=== PATIENT | male | born 1960 | race Caucasian/White ===

== ENCOUNTER 2016-08-17 17:46 | Emergency (ER) | payer OTHER ==
[2016-08-17 18:00] VITALS: BP 123/81; PULSE 73; TEMP 98; BMI 25.8
[2016-08-17] MEDS ORDERED: LIDOCAINE 1%/EPI 1:100000 (50 ML MULTI DOSE VIAL) ONE (18:24)
--- NOTE | 2016-08-17 18:42 | PDOC ---
History of Present Illness - General Chief Complaint: Laceration Stated Complaint: LACERATION Time Seen by Provider: 08/17/16 18:10 History Source: Patient Exam Limitations: No Limitations - History of Present Illness Initial Comments: 08/17/16 18:40 while at work , was replacing glass that fell onto his right wrist, broke and incurred laceration to the volar aspect of his distal wrist. Has a 2 cm flap laceration without active bleeding. Has full range of motion of fingers, no other injury. Timing/Duration: reports: just prior to arrival Severity: Yes: mild Location: reports: hands Associated Symptoms: reports: denies symptoms Past History - Travel Traveled outside of the country in the last 30 days: Yes Close contact w/someone who was outside of country & ill: Yes - Past Medical History Allergies/Adverse Reactions: Allergies Allergy/AdvReac Type Severity Reaction Status Date / Time No Known Drug Allergies Allergy Verified 08/17/16 17:54 Home Medications: Ambulatory Orders Lisinopril 10 mg PO ASDIR 08/17/16 Anemia: No Asthma: No Cancer: No Cardiac Disorders: No CVA: No COPD: No CHF: No Dementia: No Diabetes: No GI Disorders: Yes (colitis) Disorders: No HTN: Yes Hypercholesterolemia: No Liver Disease: No Seizures: No Thyroid Disease: No - Psycho/Social/Smoking Cessation Hx Anxiety: No Suicidal Ideation: No Smoking Status: No Smoking History: Never smoked Number of Cigarettes Smoked Daily: 0 Hx Alcohol Use: No Drug/Substance Use Hx: No Substance Use Type: None Hx Substance Use Treatment: No Review of Systems - Review of Systems Able to Perform ROS?: Yes Is the patient limited Bangladeshi proficient: Yes Constitutional: Yes: See HPI. No: Symptoms Reported, Malaise Musculoskeletal: Yes: Symptoms Reported, See HPI. No: Joint Swelling, Joint Stiffness Integumentary: Yes: Symptoms Reported, See HPI Neurological: Yes: See HPI. No: Symptoms reported, Numbness, Paresthesia *Physical Exam - Vital Signs Last Vital Signs Temp Pulse Resp BP Pulse Ox 98 F 73 19 123/81 97 08/17/16 17:54 08/17/16 17:54 08/17/16 17:54 08/17/16 17:54 08/17/16 17:54 - Physical Exam General Appearance: Yes: Nourished, Appropriately Dressed, Apparent Distress, Mild Distress HEENT: positive: CLARK, Normal ENT Inspection, TMs Normal, Pharynx Normal Neck: positive: Supple. negative: Lymphadenopathy (R), Lymphadenopathy (L) Respiratory/Chest: positive: Lungs Clear Extremity: positive: Normal Capillary Refill, Normal Range of Motion Integumentary: positive: Normal Color, Other (2 cm flap laceration to the distal aspect of right volar wrist, has full range of motion against resistance to all digits, neurovascular intact to fingertips. 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 NML intact, Fully Oriented, Alert, Normal Mood/ Affect, Normal Response, Motor Strength 5/5 Procedures - Laceration/Wound Repair Right Wrist Wound Length: to 2.5 cm Wound Explored: clean Wound's Depth, Shape: superficial, flap Irrigated w/ Saline: Yes Betadine Prep: Yes Anesthesia: 1% Lidocaine w/ Epi Wound Repaired With: Sutures Suture Size/Type: 5:0 Layer Closure: No Progress Note - Progress Note Progress Note: Wrist laceration repaired, Medical Decision Making - Medical Decision Making 08/17/16 18:39 *DC/Admit/Observation/Transfer Diagnosis at time of Disposition: Laceration of wrist Qualifiers: Encounter type: initial encounter Laterality: left Qualified Code(s): S61.512A - Laceration without foreign body of left wrist, initial encounter - Discharge Dispostion Disposition: HOME Condition at time of disposition: Stable Admit: No - Patient Instructions Printed Discharge Instructions: DI for Laceration Repair Additional Instructions: Rest, elevate, avoid strenuous activity or heavy lifting until sutures are removed Leave dressing on for the next 24 hours, Then may remove dressing gently and wash area with soap and water. Reapply bacitracin ointment and dressing daily for the next 5 days On day #6 keep the wound protected and cover as needed until sutures are removed allowing wound to start to dry May use Tylenol or Motrin for pain relief Suture removal in :10--14 Days - Post Discharge Activity Work/School Note: Back to Work
== END 2016-08-17 18:46 | disposition home or self-care (01) ==
LOC: JERFT 17:46 → JER 17:46 → JERFT 18:46
PROC: 0HQDXZZ Repair Right Lower Arm Skin, External Approach (ICD-10-PCS; principal; 2016-08-17)
DX: S61.511A Laceration without foreign body of right wrist, initial encounter (principal); W25.XXXA Contact with sharp glass, initial encounter; Y93.H9 Activity, other involving exterior property and land maintenance, building and construction; Y92.511 Restaurant or cafe as the place of occurrence of the external cause; Y99.0 Civilian activity done for income or pay
CPT/HCPCS: 99281-25

== ENCOUNTER 2016-09-02 08:54 | Emergency (ER) | payer OTHER ==
[2016-09-02 08:58] VITALS: BP 131/92; PULSE 59; TEMP 98.2; BMI 25.8
--- NOTE | 2016-09-02 10:16 | PDOC ---
Suture Removal/Wound Check HPI - History of Present Illness Chief Complaint: Suture/Staple Removal(Here) Stated Complaint: SUTURES REMOVAL Time Seen by Provider: 09/02/16 09:56 History Source: Yes: Patient Exam Limitations: Yes: No Limitations Treated at: [facility] Date of Last ED visit: 08/17/16 - Previous ED Treatment Type of procedure performed on last visit: Yes: Laceration Repair (right inner wrist) Tetanus Immunization: Yes: Up to Date Antibiotics Prescribed: No Past History - Past Medical History Allergies/Adverse Reactions: Allergies No Known Drug Allergies Allergy (Verified 09/02/16 08:58) Home Medications: Ambulatory Orders Lisinopril 10 mg PO ASDIR 08/17/16 General: Yes: no pertinent history - Social History Smoking History: No Smoking Status: Never smoked Number of Ciarettes Per Day: 0 Suture Removal/Wound Check PE - Physical Exam Laceration/Wound Check Symptoms: reports: None Comments: 09/02/16 18:40 right inner wrist with 5 intact sutures wound well healed nv intact no redness or deficit in function Procedures - Additional Procedures Progress: 09/02/16 18:41 5 simple interrupted sutures removed edges well healed Medical Decision Making - Medical Decision Making 09/02/16 18:41 cc: suture removal right inner wrist nv intact FROM of the wrist *DC/Admit/Observation/Transfer Diagnosis at time of Disposition: Visit for suture removal - Discharge Dispostion Disposition: HOME Condition at time of disposition: Good - Referrals Referrals: Tricia Mcgraw MD [Primary Care Provider] - - Patient Instructions Additional Instructions: apply vitamin E oil or cocoa butter to the scar twice a day to help smoothe the scar down for the next few months
== END 2016-09-02 10:20 | disposition home or self-care (01) ==
LOC: JERFT 08:54
DX: Z48.02 Encounter for removal of sutures (principal)
CPT/HCPCS: 99281-25

== ENCOUNTER 2016-10-22 06:09 | Day surgery (SDC) | payer OTHER ==
[2016-10-21 14:36] VITALS: BMI 25.4
[2016-10-22] MEDS ORDERED: BUPIVACAINE HCL/PF 0.5% (5MG/ML) 10 ML VIAL ONE (07:43)
[2016-10-22] MEDS ORDERED: MIDAZOLAM HCL 2 MG/2 ML SINGLE DOSE VIAL ONE (07:55)
[2016-10-22] MEDS ORDERED: PROPOFOL 20 ML ONE ×2 (07:55→09:49)
[2016-10-22] MEDS ORDERED: ROCURONIUM BROMIDE 50 MG/5 ML VIAL ONE (07:55)
--- NOTE | 2016-10-22 08:19 | HP ---
History & Physical Update - History History: No Change - Physical Physical: No Change - Assessment Assessment: No Change - Plan Plan: No Change
[2016-10-22] MEDS ORDERED: ceFAZolin SODIUM 1 GM VIAL IVPB ONE (08:29)
[2016-10-22] MEDS ORDERED: ceFAZolin SODIUM 1 GM VIAL ONE (08:46)
[2016-10-22] MEDS ORDERED: BUPIVACAINE HCL/PF 0.5% (5MG/ML) 10 ML VIAL IJ ONE (08:49)
[2016-10-22] MEDS ORDERED: DEXAMETHASONE SOD PHOSPHATE 4 MG/1 ML VIAL ONE (09:17)
[2016-10-22] MEDS ORDERED: NEOSTIGMINE METHYLSULFATE 0.5 MG/ML - 10 ML MDV ONE (09:17)
[2016-10-22] MEDS ORDERED: GLYCOPYRROLATE 0.2 MG/1 ML VIAL ONE (09:17)
[2016-10-22] MEDS ORDERED: LIDOCAINE HCL/PF 2% SDV 5ML VIAL ONE (09:17)
[2016-10-22] MEDS ORDERED: KETOROLAC TROMETHAMINE 30 MG/1 ML VIAL ONE (09:17)
[2016-10-22] MEDS ORDERED: PROMETHAZINE HCL 25 MG/1 ML VIAL IVPUSH PRN (10:50)
[2016-10-22] MEDS ORDERED: ONDANSETRON 4 MG/2 ML VIAL IVPUSH PRN (10:50)
[2016-10-22] MEDS ORDERED: oxyCODONE HCL 5 MG TABLET PO PRN (10:50)
[2016-10-22] MEDS ORDERED: LACTATED RINGERS SOLUTION 1,000 ML IV SCH (11:00)
[2016-10-22 14:12] LABS: HIV 1 & 2 AB NEGATIVE; HIV 1 AGp24 NEGATIVE
[2016-10-22] MEDS ORDERED: oxyCODONE HCL 5 MG TABLET ONE (14:22)
[2016-10-22 16:03] VITALS: PULSE 65; TEMP 97.8
[2016-10-22 16:12] VITALS: BP 124/68
--- NOTE | 2016-10-23 15:06 | SURG ---
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 For further detail, please refer to operative report. Visit type - Case Type Case Type: Scheduled Admission - Emergency Emergency Visit: No - New patient This patient is new to me today: Yes Date on this admission: 10/27/16 - Critical Care Critical Care patient: No
--- NOTE | 2016-10-23 16:24 | OP ---
DATE OF OPERATION: 10/22/2016 PROCEDURE: Robotic-assisted laparoscopic umbilical hernia repair with umbilical/ventral hernia repair with mesh. PREOPERATIVE DIAGNOSIS: Umbilical/ventral hernia. POSTOPERATIVE DIAGNOSIS: Umbilical/ventral hernia. SURGEON: Bryan Tran MD ONLINE RETAILER: LEYDI Madsen ANESTHESIA: General endotracheal. FINDINGS AND PROCEDURE: This is a 56-year-old male who presents with a longstanding history of an umbilical bulge which was associated with pain on exertion, and which has increased in size. On physical exam, the patient has a partially reducible , 3-cm bulge of the umbilicus with mild tenderness on deep palpation. The defect was vaguely palpable, reaches about 3 cm in its widest diameter. The patient was advised to have elective repair of the hernia. Consent was obtained after discussing the risks, benefits and alternatives to the procedure. The patient was brought to the operating room and placed in supine position. General endotracheal anesthesia was administered. The abdomen was prepped and draped in usual sterile fashion. A roll was then placed under the patient's left flank. The peritoneal cavity was entered using the Veress needle technique via an 8-mm left subcostal incision behind the anterior axillary line. Pneumoperitoneum was established. An 8-mm port was then inserted, followed by insertion of the 3D, 30-degree laparoscope. The peritoneal cavity was carefully inspected and was noted to be free of inadvertent injury. The umbilical defect was visualized and was noted to contain a moderate amount of preperitoneal fat. Two 8-mm ports were inserted 7 mm away from each other, one at the level of the umbilicus and one at the left lower quadrant behind the anterior axillary line. The laparoscope was then placed in the middle port. The target organ was set and the robotic arms were docked. The EndoWrist venus were inserted at the left subcostal port and the fenestrated bipolar was inserted at the left lower quadrant port. The undersigned then scrubbed out to commence the console part of the procedure. The parietal peritoneum was scored about 5 cm away from the umbilical defect using the EndoWrist venus. A preperitoneal pocket was then created with at least 5 cm of circumferential space surrounding the umbilical defect. The hernia sac was then taken down together with the incarcerated preperitoneal fat. At this point, the defect was noted to be about 3 cm in its widest diameter. The defect was primarily closed with no. 1 V-Loc nonabsorbable suture. A 10- x 10-cm ProGrip mesh was then deployed and carefully laid in the retrorectus/retroperitoneal space. After deployment was deemed satisfactory, the peritoneal pocket was closed with running continuous V-Loc 2-0 absorbable sutures. The peritoneal cavity was again carefully inspected and was noted to be free of active bleeding or inadvertent injury. The robotic instruments were removed. The robotic arms were undocked and the pneumoperitoneum was evacuated. The ports were removed. The wounds were closed with subcuticular Biosyn 4-0 sutures, reinforced with Dermabond. The patient was successfully extubated and transferred to the postanesthesia care unit in satisfactory condition. Estimated blood loss was about 5 mL. Wound class was clean. The patient received a gram of Ancef prior to the start of the procedure. Miriam [id number] MTDD
== END 2016-10-22 15:30 | disposition home or self-care (01) ==
LOC: JASU-SURG 06:09
PROVIDERS: ATTEND Surgery
PROC: 8E0W4CZ Robotic Assisted Procedure of Trunk Region, Percutaneous Endoscopic Approach (ICD-10-PCS; 2016-10-22)
PROC: 0WUF4JZ Supplement Abdominal Wall with Synthetic Substitute, Percutaneous Endoscopic Approach (ICD-10-PCS; principal; 2016-10-22 08:00)
DX: K42.9 Umbilical hernia without obstruction or gangrene (principal); K43.9 Ventral hernia without obstruction or gangrene
CPT/HCPCS: 49652; S2900; 36415; 80074; 87389; 94760